=== PATIENT | male | born 1960 | race Two or more races ===

== ENCOUNTER 2020-07-05 19:40 | Emergency (ER) | payer BC, OTHER ==
[2020-07-05] MEDS ORDERED: IBUPROFEN 400 MG TABLET (FP) PO ONE ×2 (19:58→20:01)
[2020-07-05 20:08] VITALS: BP 150/91; PULSE 74; TEMP 98.6; BMI 28.0
== END 2020-07-05 20:05 | disposition home or self-care (01) ==
LOC: FER 19:40
DX: S16.1XXA Strain of muscle, fascia and tendon at neck level, initial encounter (principal)
CPT/HCPCS: 99284-25